=== PATIENT | female | born 1970 | race Caucasian/White ===

== ENCOUNTER 2017-07-06 00:33 | Emergency (ER) | payer MEDICAID ==
[~2017-07-06] VITALS: Ht 172.7 cm; Wt 70.0 kg
[~2017-07-06 00:33] MED LIST: CLIN1CAP5 PO
[2017-07-06 00:36] VITALS: BP 109/77; PULSE 106; RESP 18; TEMP 98.7; O2SAT 97
[2017-07-06] MEDS ORDERED: FAMOTIDINE 20 MG TAB PO ONE (01:00)
[2017-07-06] MEDS ORDERED: diphenhydrAMINE HCL 25 MG CAP PO ONE (01:00)
[2017-07-06] MEDS ORDERED: predniSONE 50 MG TAB PO ONE (01:00)
--- NOTE | 2017-07-06 01:00 | PD ---
HPI Chief Complaint: Allergic/Adverse Reaction Time Seen by Provider: 00:55 Travel History International Travel<30 days: No Contact w/Intl Traveler<30days: No Traveled to known affect area: No History of Present Illness HPI 46 year-old female presents to the emergency department for pruritic urticarial rash. Patient states rash began just prior to arrival to the emergency department. Patient states rash began shortly after taking Aleve. Patient states she was also sitting in a chair that should not sat in before. Patient denies any lip tongue or throat swelling. Patient states rashes predominantly over the buttock and posterior aspect of the lower extremities but has more recently started to spread onto the anterior abdominal wall. Patient has taken no medications prior to arrival to the emergency department to alleviate her symptoms. Patient states pruritus is quite severe. Patient was very concerned that she had instantly developed a scabies related rash. Patient is unable to identify any other new items that may have precipitated an allergic reaction. Patient does not report any syncope or near syncope palpitations chest pain abdominal pain or diarrhea. PFSH Past Medical History Narrative Medical immunizations current occasional tobacco use and cigarette use; nursing notes reviewed Diminished Hearing: No Immunizations Current: Yes ?: Not LMP: 06/16/17 Social History Alcohol Use: Yes (OCASIONALLY) Tobacco Use: Yes (5 CIGS A DAY) Substance Use: No Allergies-Medications (Allergen,Severity, Reaction): Coded Allergies: bee venom protein (honey bee) (Unverified Allergy, Severe, SWELLING, 07/06) Reported Meds & Prescriptions Reported Meds & Active Scripts Active Review of Systems Except as stated in HPI: all other systems reviewed are Neg General / Constitutional: No: Fever, Chills Eyes: No: Visual changes HENT: No: Headaches, Congestion Cardiovascular: No: Chest Pain or Discomfort Respiratory: No: Shortness of Breath, Wheezing Gastrointestinal: No: Nausea, Vomiting, Abdominal Pain Genitourinary: No: Flank Pain Musculoskeletal: No: Myalgias, Arthralgias Skin: Positive Rash, Positive Itching, Positive Hives Neurologic: No: Weakness Psychiatric: Positive: Anxiety Hematologic/Lymphatic: No: Lymph Node Enlargement Physical Exam Narrative GENERAL: Well-developed well-nourished female in no acute distress no respiratory distress without stridor or hoarseness. SKIN: Warm and dry. Erythematous diffuse papular urticarial rash without vesicles or pustules no petechia or purpura. HEAD: Normocephalic. EYES: No scleral icterus. No injection or drainage. ENT: Mucous membranes moist airway is patent no angioedema. NECK: Supple, trachea midline. No JVD or lymphadenopathy. CARDIOVASCULAR: Regular rate and rhythm without murmurs, gallops, or rubs. RESPIRATORY: Breath sounds equal bilaterally. No accessory muscle use. GASTROINTESTINAL: Abdomen soft, non-tender, nondistended. MUSCULOSKELETAL: No cyanosis, or edema. BACK: Nontender without obvious deformity. No CVA tenderness. Data Data Last Documented VS Vital Signs Date Time Temp Pulse Resp B/P (MAP) Pulse Ox O2 Delivery O2 Flow Rate FiO2 07/06/17 00:45 98 Room Air 07/06/17 00:36 98.7 106 18 109/77 (88) Orders Orders Diphenhydramine (Benadryl) (07/06/17 01:00) Famotidine (Pepcid) (07/06/17 01:00) Prednisone (Deltasone) (07/06/17 01:00) MDM Medical Decision Making Medical Screen Exam Complete: Yes Emergency Medical Condition: Yes Medical Record Reviewed: Yes Differential Diagnosis Acute allergic reaction, contact dermatitis, allergic dermatitis; no findings for anaphylaxis or angioedema Narrative Course Patient administered Benadryl 25 mg by mouth Pepcid 20 mg by mouth and prednisone 50 mg by mouth Diagnosis Primary Impression: Urticaria Referrals: Primary Care Physician call for appointment Patient Instructions: General Instructions Additional Instructions: Takes Zantac 150 twice daily for 7 days Take Benadryl 25-50 mg as often as every 4-6 hours for itching and hives as needed Complete course of steroid as prescribed Avoid exposure to fabric identified in the new piece of furniture your exposed to this evening and avoid further use of Aleve/Naprosyn/naproxen Increase fluid hydration Avoid overheating Follow-up with your primary care provider Return to the emergency department for any concerns or change in condition Med/Other Pt SpecificInfo: Prescription(s) given Scripts Methylprednisolone Dosepak (Medrol Dosepak) 4 Mg Dspk 4 MG PO DIRECTED, #1 DSPK 0 Refills Per Pharmacist direction Prov: Laura Davis MD 07/06/17 Disposition: DISCHARGE HOME Condition: Stable Laura Davis MD Jul 06, 2017 01:00
[2017-07-06] MEDS ORDERED: MEDR4PAK PO (01:32)
[2017-07-06 01:40] VITALS: BP 110/62; TEMP 98.2
== END 2017-07-06 01:44 | disposition home or self-care (01) ==
LOC: PHED 00:33
DX: L50.9 Urticaria, unspecified (principal); F17.210 Nicotine dependence, cigarettes, uncomplicated
CPT/HCPCS: 99283; J7512

== ENCOUNTER 2017-09-20 12:44 | Emergency (ER) | payer MEDICAID ==
[~2017-09-20] VITALS: Ht 172.7 cm; Wt 71.0 kg
[~2017-09-20 12:44] MED LIST changes: -CLIN1CAP5 PO; +MEDR4PAK PO
[2017-09-20 12:48] VITALS: BP 111/69; PULSE 129; RESP 18; TEMP 99.3; O2SAT 95
[2017-09-20] MEDS ORDERED: methylPREDNISolone SOD SUCC 125 MG/2 ML VIAL IV PUSH ONE (13:00)
[2017-09-20] MEDS ORDERED: SODIUM CHLORIDE 0.9% FLUSH 10 ML FLUSH IVF PRN (13:00)
[2017-09-20] MEDS ORDERED: AZITHROMYCIN INJ 500 MG in SODIUM CHLOR 0.9% 250 ML INJ 250 ML IV ONE (13:00)
--- NOTE | 2017-09-20 13:00 | PD ---
HPI Chief Complaint: Cold / Flu Symptoms Time Seen by Provider: 12:56 Travel History International Travel<30 days: No Contact w/Intl Traveler<30days: No Traveled to known affect area: No History of Present Illness HPI Patient presents with complaints of upper airway congestion and cough and subjective fever for 3-4 days. States she stopped smoking one week ago. Mild nausea. Denies vomiting or diarrhea. No new rashes. Denies . Denies sinus pain or pressure. PFSH Past Medical History Diminished Hearing: No Immunizations Current: Yes ?: Not LMP: 09/11/17 Past Surgical History Other Surgery: Yes (c section) Social History Alcohol Use: Yes (OCASIONALLY) Tobacco Use: No Substance Use: No Allergies-Medications (Allergen,Severity, Reaction): Coded Allergies: bee venom protein (honey bee) (Unverified Allergy, Severe, SWELLING, ) Reported Meds & Prescriptions Reported Meds & Active Scripts Active Ventolin Hfa 18 GM Inh (Albuterol Sulfate) 90 Mcg/Act Aer 2 Puff INH Q4-6H PRN Cheratussin AC Liq (Guaifenesin-Codeine Liq) 100-10 Mg/5 Ml Syrp 10 Ml PO Q4H PRN Do not exceed 6 doses/24 hrs. Prednisone (21) 10 mg tab Dose Pack (Prednisone) 10 Mg Pack 10 Mg PO DIRECTED Zithromax (Azithromycin) 500 Mg Tab 500 Mg PO DAILY 7 Days Review of Systems General / Constitutional: Positive: Chills Eyes: No: Visual changes HENT: Positive: Headaches, Rhinorrhea Cardiovascular: No: Chest Pain or Discomfort Respiratory: Positive: Cough, No: Shortness of Breath Gastrointestinal: No: Abdominal Pain Genitourinary: No: Dysuria Musculoskeletal: No: Pain Skin: No Rash Neurologic: No: Weakness Psychiatric: No: Depression Endocrine: No: Polydipsia Hematologic/Lymphatic: No: Easy Bruising Physical Exam Narrative GENERAL: Well-nourished, well-developed patient. SKIN: Focused skin assessment warm/dry. HEAD: Normocephalic. EYES: No scleral icterus. No injection or drainage. NECK: Supple, trachea midline. No JVD or lymphadenopathy. CARDIOVASCULAR: Regular rate and rhythm without murmurs, gallops, or rubs. RESPIRATORY: Breath sounds equal bilaterally. No accessory muscle use. Mildly coarse bilateral bases GASTROINTESTINAL: Abdomen soft, non-tender, nondistended. MUSCULOSKELETAL: No cyanosis, or edema. BACK: Nontender without obvious deformity. No CVA tenderness. Data Data Last Documented VS Vital Signs Date Time Temp Pulse Resp B/P (MAP) Pulse Ox O2 Delivery O2 Flow Rate FiO2 09/20/17 16:05 98.9 87 20 100/59 (73) 93 09/20/17 14:28 Room Air Orders Orders Complete Blood Count With Diff (09/20/17 12:56) Influenzae A/B Antigen (09/20/17 12:56) Oximetry (09/20/17 12:56) Chest, Single Ap (09/20/17 12:56) Sodium Chloride 0.9% Flush (Ns Flush) (09/20/17 13:00) Methylprednisolone So Succ Inj (Solumedr (09/20/17 13:00) Azithromycin Inj (Zithromax Inj) (09/20/17 13:00) Ketorolac Inj (Toradol Inj) (09/20/17 13:45) Sodium Chlorid 0.9% 500 Ml Inj (Ns 500 M (09/20/17 14:30) Sodium Chlor 0.9% 1000 Ml Inj (Ns 1000 M (09/20/17 15:30) Labs Laboratory Tests Test 09/20/17 13:05 White Blood Count 20.0 TH/MM3 Red Blood Count 4.50 MIL/MM3 Hemoglobin 14.7 GM/DL Hematocrit 43.4 % Mean Corpuscular Volume 96.4 FL Mean Corpuscular Hemoglobin 32.7 PG Mean Corpuscular Hemoglobin Concent 33.9 % Red Cell Distribution Width 12.2 % Platelet Count 229 TH/MM3 Mean Platelet Volume 8.2 FL Neutrophils (%) (Auto) 85.5 % Lymphocytes (%) (Auto) 5.3 % Monocytes (%) (Auto) 4.4 % Eosinophils (%) (Auto) 0.1 % Basophils (%) (Auto) 4.7 % Neutrophils # (Auto) 17.1 TH/MM3 Lymphocytes # (Auto) 1.1 TH/MM3 Monocytes # (Auto) 0.9 TH/MM3 Eosinophils # (Auto) 0.0 TH/MM3 Basophils # (Auto) 0.9 TH/MM3 CBC Comment AUTO DIFF Differential Total Cells Counted 100 Neutrophils % (Manual) 20 % Lymphocytes % 76 % Monocytes % 4 % Neutrophils # (Manual) 4.0 TH/MM3 Differential Comment FINAL DIFF MANUAL Atypical Lymphocytes % Platelet Estimate NORMAL Platelet Morphology Comment NORMAL Red Cell Morphology Comment NORMAL MDM Medical Decision Making Medical Screen Exam Complete: Yes Emergency Medical Condition: Yes Differential Diagnosis COPD exacerbation, pneumonia, bronchitis, sinusitis, influenza Narrative Course Assessment and plan discussed with patient at bedside. Leukocytosis noted. Right basilar bronchopneumonia noted. Patient given a liter normal saline. She received IV antibiotics and steroids. Patient has a 4-year-old at home and is not inclined to be admitted for observation. Blood pressure improved with fluids. Overall patient feels better. She is ambulating about the emergency room without palpitation. Diagnosis Primary Impression: Bronchopneumonia Patient Instructions: General Instructions Additional Instructions: Smoking cessation. Rest fluids and Motrin. Consider vitamin C and zinc to boost her immune system. Encouraged nasal irrigation. Medications as prescribed. Follow-up with PCP. Return to emergency with any onset of new symptoms. Med/Other Pt SpecificInfo: Prescription(s) given Scripts Albuterol 18 GM Inh (Ventolin Hfa 18 GM Inh) 90 Mcg/Act Aer 2 PUFF INH Q4-6H Y for SHORTNESS OF BREATH, #1 INHALER 0 Refills Prov: Kulwant Camara MD 09/20/17 Guaifenesin-Codeine Liq (Cheratussin AC Liq) 100-10 Mg/5 Ml Syrp 10 ML PO Q4H Y for COUGH AND COLD SYMPTOMS, #120 ML 0 Refills Do not exceed 6 doses/24 hrs. Prov: Kulwant Camara MD 09/20/17 Prednisone (21) 10 mg tab Dose Pack (Prednisone (21) 10 mg tab Dose Pack) 10 Mg Pack 10 MG PO DIRECTED for Inflammation, #1 DSPK 0 Refills Prov: Kulwant Camara MD 09/20/17 Azithromycin (Zithromax) 500 Mg Tab 500 MG PO DAILY for Infection for 7 Days, #7 TAB 0 Refills Prov: Kulwant Camara MD 09/20/17 Disposition: 01 DISCHARGE HOME Condition: Good Kulwant Camara MD Sep 20, 2017 12:59
[2017-09-20 13:16] VITALS: O2SAT 96
[2017-09-20 13:20] LABS: AUTOMATED NEUTROPHIL # 17.1 TH/MM3 (1.8-7.7); BASOPHIL # 0.9 TH/MM3 (0-0.2); BASOPHIL % 4.7 % (0.0-2.0); EOSINOPHIL % 0.1 % (0.0-4.0); HEMATOCRIT 43.4 % (35.0-46.0); HEMOGLOBIN 14.7 GM/DL (11.6-15.3); LYMPH % 5.3 % (9.0-44.0); LYMPHOCYTE # 1.1 TH/MM3 (1.0-4.8); MEAN CELL VOLUME 96.4 FL (80.0-100.0); MEAN CORPUSCULAR HEMOGLOBIN 32.7 PG (27.0-34.0); MEAN CORPUSCULAR HGB CONC 33.9 % (32.0-36.0); MEAN PLATELET VOLUME 8.2 FL (7.0-11.0); MONO % 4.4 % (0.0-8.0); MONOCYTE # 0.9 TH/MM3 (0-0.9); NEUT % 85.5 % (16.0-70.0); PLATELET COUNT 229 TH/MM3 (150-450); RED CELL DISTRIBUTION WIDTH 12.2 % (11.6-17.2)
--- NOTE | 2017-09-20 13:27 | RADRPT ---
EXAM DATE/TIME: 09/20/2017 13:04 [facility] COMPARISON: No previous studies available for comparison. INDICATIONS : Cough, fever MEDICAL HISTORY : None. SURGICAL HISTORY : None. ENCOUNTER: Initial ACUITY: 4 - 6 days PAIN SCORE: 0/10 LOCATION: Bilateral chest FINDINGS: There is patchy right basilar airspace disease most characteristic of bronchopneumonia. No effusion o r pneumothorax the heart size is within normal limits. CONCLUSION: 1. Right basilar bronchopneumonia. No significant effusion. Joseph Lujan MD on September 20, 2017 at 13:25 Board Certified Radiologist. This report was verified electronically.
[2017-09-20] MEDS ORDERED: KETOROLAC TROMETHAMINE 30 MG/ML (IVP) VIAL IV PUSH ONE (13:45)
[2017-09-20 14:21] LABS: LYMPHOCYTES 76 % (9-44); MONOCYTES 4 % (0-8); POLYS (SEG NEUTROPHILS) 20 % (16-70)
[2017-09-20 14:28] VITALS: BP 83/55; PULSE 100; RESP 18; O2SAT 95
[2017-09-20] MEDS ORDERED: SODIUM CHLORID 0.9% 500 ML INJ 500 ML IV ONE (14:30)
[2017-09-20] MEDS ORDERED: ZITH500T PO (14:41)
[2017-09-20] MEDS ORDERED: CHERSYP2 PO (14:41)
[2017-09-20] MEDS ORDERED: VENTAER INH (14:41)
[2017-09-20] MEDS ORDERED: PRED10PA PO (14:41)
[2017-09-20] MEDS ORDERED: SODIUM CHLOR 0.9% 1000 ML INJ 1,000 ML IV ONE (15:30)
[2017-09-20 15:58] VITALS: BP 93/54; PULSE 90; RESP 20; O2SAT 96
[2017-09-20 16:05] VITALS: BP 100/59; PULSE 87; RESP 20; TEMP 98.9; O2SAT 93
== END 2017-09-20 16:26 | disposition home or self-care (01) ==
LOC: PHED 12:44
DX: J18.0 Bronchopneumonia, unspecified organism (principal); R11.0 Nausea; J34.89 Other specified disorders of nose and nasal sinuses; R51 Headache
CPT/HCPCS: 71045; 85007; 85027; 87804; 96361; 96365; 96375; 99284; J0456; J1885; J2930; J7030; J7040; J7050